=== PATIENT | male | born 1960 ===

== ENCOUNTER 2024-07-03 08:17 | Outpatient (CLI) | payer OTHER | END 2024-07-03 08:18 | disposition home or self-care (01) | LOC: CSHSLEEP 08:17 | PROVIDERS: ATTEND Physician Assistant | DX: G47.33 Obstructive sleep apnea (adult) (pediatric) (principal); R53.83 Other fatigue; R09.89 Other specified symptoms and signs involving the circulatory and respiratory systems; R35.1 Nocturia; I10 Essential (primary) hypertension | CPT/HCPCS: 95800 ==